=== PATIENT | male | born 1980 | race Caucasian/White ===

== ENCOUNTER 2023-04-26 15:58 | Emergency (ER) | payer OTHER ==
[~2023-04-26] VITALS: Ht 180.3 cm; Wt 91.0 kg
[2023-04-26 16:01] VITALS: O2SAT 99
[2023-04-26] MEDS ORDERED: MORPHINE SULFATE 4 MG/ML CPJ (NOT FOR IM USE) IV STA (16:18)
[2023-04-26] MEDS ORDERED: ONDANSETRON HCL 4MG/2ML INJ IV STA (16:18)
[2023-04-26] MEDS ORDERED: SODIUM CHLORIDE 0.9% 1,000 ML IV ONE (16:30)
[2023-04-26 16:40] LABS: BASOPHILS % 0.6 % (0.0-2.0); HEMOGLOBIN. 16.4 g/dL (14.0-18.0); LYMPHOCYTES % 12.8 % (20.0-50.0); MEAN CORPUSCULAR HEMOGLOBIN 30.9 pg (28.0-32.0); MEAN CORPUSCULAR VOLUME 90.6 fL (80.0-94.0); MEAN PLATELET VOLUME 9.4 fl (7.4-10.4); MONOCYTES % 10.4 % (2.0-8.0); NEUTROPHILS % 76.2 % (40.0-76.0); PLATELET 211 x1000/uL (130-400); RED CELL DISTRIBUTION WIDTH 14.1 % (11.6-14.6)
[2023-04-26 16:53] LABS: CHLORIDE 105 mEq/L (98-107)
[2023-04-26 17:04] LABS: ETHANOL BLOOD < 10 mg/dL (-10)
[2023-04-26] MEDS ORDERED: MAGNESIUM/ALUMINUM HYDROXIDE/SIMETHICONE 30ML UDC PO STA (19:26)
[2023-04-26] MEDS ORDERED: FAMOTIDINE 20MG/2ML VIAL IV STA (19:26)
[2023-04-26] MEDS ORDERED: MAG355OR21 MT (19:46)
[2023-04-26] MEDS ORDERED: FAMO-135 MT (19:46)
[2023-04-26 20:56] VITALS: BP 121/78; PULSE 73; RESP 13; TEMP 98.5
== END 2023-04-26 21:04 | disposition home or self-care (01) ==
LOC: ER 15:58
DX: R10.13 Epigastric pain (principal)
CPT/HCPCS: 80053; 80320; 83690; 85025; 84484; 36415; 71045; 74176; 93005; 96361; 96374; 96375; 99285; J3490; J2405; J2270; J7030; Z7610 ×3; G0480